=== PATIENT | female | born 1970 ===

== ENCOUNTER 2017-07-06 09:32 | Emergency (ER) | payer OTHER ==
[~2017-07-06] VITALS: Ht 162.6 cm; Wt 59.0 kg
[2017-07-06] MEDS ORDERED: SODIUM CHLORIDE 0.9% 1,000 ML IVB ONE (09:46)
[2017-07-06] MEDS ORDERED: PANTOPRAZOLE 40 MG/10 ML VIAL IV STA (09:46)
[2017-07-06] MEDS ORDERED: PROCHLORPERAZINE EDISYLATE 5 MG/ML 2ML VIAL IV ONE (10:00)
[2017-07-06] MEDS ORDERED: HYDROmorphone HCL 2 MG/ML VL IV ONE ×2 (10:00→11:15)
[2017-07-06 10:08] VITALS: BP 112/70
[2017-07-06 10:36] LABS: Basophils # (auto) 0 uL; Basophils % (auto) 0.2 % (0.0-2.0); CONDITION Y; Eosinophils # (auto) 0 uL; Eosinophils % (auto) 0.1 % (0.0-7.0); Hematocrit 36.2 % (36.0-46.0); Hemoglobin 11.7 g/dL (12.2-16.2); Lymphocytes # (auto) 1.2 uL; Lymphocytes % (auto) 17.7 % (10.0-50.0); Mean Corpuscular Hemoglobin 29.6 pg (28.0-32.0); Mean Corpuscular Hgb Conc. 32.4 g/dL (32.0-36.0); Mean Corpuscular Volume 91.5 fL (80.0-100.0); Mean Platelet Volume 11.1 fL (7.4-10.4); Monocytes # (auto) 0.3 uL; Monocytes % (auto) 4.1 % (0.0-12.0); Neutrophils # (auto) 5.2 uL; Neutrophils % (auto) 77.9 % (37.0-80.0); Platelet Count (auto) 173 10^3/uL (140-450); Red Cell Distribution Width 17.7 % (11.6-16.0); SUSPECT SEE PRINTOUT; White Blood Cell 6.7 10^3/uL (4.4-10.8)
[2017-07-06 10:55] LABS: Albumin 3.9 g/dL (3.4-5.0); BUN/Creatinine Ratio 22.8; Bilirubin, Total 0.5 mg/dL (0.2-1.0); Calcium 8.9 mg/dL (8.5-10.1); Magnesium 2.3 mg/dL (1.6-2.6); Potassium 3.8 mmol/L (3.5-5.1); Total Protein 8.3 g/dL (6.4-8.2)
[2017-07-06 11:53] LABS: Giant Platelets Moderate; Platelet Estimate Adequate
== END 2017-07-06 12:42 | disposition home or self-care (01) ==
LOC: ER 09:45
DX: R10.11 Right upper quadrant pain (principal); R11.2 Nausea with vomiting, unspecified; F17.210 Nicotine dependence, cigarettes, uncomplicated; F12.10 Cannabis abuse, uncomplicated; R19.7 Diarrhea, unspecified; Z88.6 Allergy status to analgesic agent; Z90.49 Acquired absence of other specified parts of digestive tract
CPT/HCPCS: 36415; 80053; 82150; 83690; 83735; 85025; 94761; 96361; 96374; 96375; 96376; 99285; C9113; J0780; J1170; J7030